=== PATIENT | male | born 1985 | race Two or more races ===

== ENCOUNTER 2018-09-19 18:51 | Emergency (ER) | payer MEDICAID ==
[~2018-09-19] VITALS: Ht 167.6 cm; Wt 89.5 kg
[2018-09-19 20:25] VITALS: BP 136/95
== END 2018-09-19 20:25 | disposition home or self-care (01) ==
LOC: ED 18:51
DX: B34.9 Viral infection, unspecified (principal); F41.9 Anxiety disorder, unspecified

== ENCOUNTER 2018-11-06 17:07 | Emergency (ER) | payer MEDICAID ==
[~2018-11-06] VITALS: Ht 167.6 cm; Wt 91.6 kg
[2018-11-06 18:06] VITALS: BP 144/96
== END 2018-11-06 18:06 | disposition home or self-care (01) ==
LOC: ED 17:07
DX: F41.9 Anxiety disorder, unspecified (principal); F32.9 Major depressive disorder, single episode, unspecified; Z76.0 Encounter for issue of repeat prescription